=== PATIENT | female | born 1935 | race Hispanic/Latino ===

== ENCOUNTER 2024-01-28 14:49 | Emergency (ER) | payer MEDICARE, OTHER ==
[2024-01-28] MEDS ORDERED: Acetaminophen 500 MG TAB ONE (15:27)
== END 2024-01-28 16:35 | disposition home or self-care (01) ==
LOC: CSHERS 14:49
DX: S80.01XA Contusion of right knee, initial encounter (principal); S00.03XA Contusion of scalp, initial encounter; I10 Essential (primary) hypertension; E11.9 Type 2 diabetes mellitus without complications; W19.XXXA Unspecified fall, initial encounter
CPT/HCPCS: 70450; 72125; 72170